=== PATIENT | female | born 1995 | race Caucasian/White ===

== ENCOUNTER 2017-09-15 15:27 | Emergency (ER) | payer MEDICAID ==
--- NOTE | 2017-09-15 16:54 | EDPHY ---
H & P Stated Complaint: trouble sleeping, SI Source: Patient Exam Limitations: No limitations - Personal History LMP (Females 10-55): Now Current Tetanus/Diphtheria Vaccine: Unsure Current Tetanus Diphtheria and Acellular Pertussis (TDAP): Unsure - Medical/Surgical History Hx Asthma: No Hx Chronic Respiratory Disease: No Hx Diabetes: No Hx Cardiac Disease: No Hx Renal Disease: No Hx Cirrhosis: No Hx Alcoholism: No Hx HIV/AIDS: No Hx Splenectomy or Spleen Trauma: No Other PMH: depression, anxiety - Social History Smoking Status: Current some day smoker Time Seen by Provider: 09/15/17 15:42 HPI/ROS: CHIEF COMPLAINT: Anxiety, suicidal thoughts HISTORY OF PRESENT ILLNESS: The patient presents the ED with complaints of anxiety and suicidal thoughts. The patient is currently being treated for depression and anxiety. She is on Zyprexa, Wellbutrin and trazodone. The patient has had some problems with warrants. She is currently in the parol system. She typically gets her health care at [facility]. She was seen at [facility] earlier today and felt as if she was dismissed. She presents to the emergency department today because she feels unsafe. She has thoughts of suicide with an intent to overdose on her psychiatric medications. The patient denies any drug or alcohol use. REVIEW OF SYSTEMS: A comprehensive 10 point review of systems is otherwise negative aside from elements mentioned in the history of present illness. (Dillon Steel) - Physical Exam Exam: General Appearance: [Alert, no distress] Eyes: [Pupils equal and round no pallor or injection] ENT, Mouth: [Mucous membranes moist] Respiratory: [There are no retractions, lungs are clear to auscultation] Cardiovascular: [Regular rate and rhythm] Gastrointestinal: [Abdomen is soft and nontender, no masses, bowel sounds normal] Neurological: [A&O, normal motor function, normal sensory exam, normal cranial nerves] Skin: [Warm and dry, no rashes] Musculoskeletal: [Neck is supple nontender] Extremities: [symmetrical, full range of motion] Psychiatric: [Patient is oriented X 3, there is no agitation] (Dillon Steel ) Constitutional: Initial Vital Signs Temperature (C) 36.6 C 09/15/17 15:51 Heart Rate 89 09/15/17 15:51 Respiratory Rate 18 09/15/17 15:51 Blood Pressure 106/86 H 09/15/17 15:51 O2 Sat (%) 98 09/15/17 15:51 O2 Delivery Mode Room Air Allergies/Adverse Reactions: carbamazepine [From Tegretol] Allergy (Verified 09/15/17 15:55) doxycycline Allergy (Verified 09/15/17 15:54) metronidazole [From Flagyl] Allergy (Verified 09/15/17 15:55) oxcarbazepine [From Trileptal] Allergy (Verified 09/15/17 15:55) Home Medications: Medication Instructions Recorded Wellbutrin Xl 09/15/17 Zyprexa 09/15/17 traZODone 09/15/17 Medical Decision Making ED Course/Re-evaluation: The patient medically cleared for psychiatric evaluation. She was evaluated by [facility]. They do not feel she meets criteria for 72 hr hold which do feel that she could benefit from placement in a crisis stabilization unit. They have contacted her regular provider at [facility] who is evaluating placement options for the patient. The patient has no evidence of an obvious toxidrome, psychosis or acute medical condition. 9:15 p.m.: Psychiatric disposition is pending. The patient will be turned over to Dr. Elizabeth at shift change pending psychiatric disposition. (Dillon Steel) 2:30 a.m.- The patient was stable throughout my shift. He was accepted at [facility] crisis stabilization unit by Dr. Hannon. I have completed the EMTALA form. ( Franny Elizabeth) Differential Diagnosis: Differential diagnosis considered includes suicidal ideation, depression, psychosis, overdose (Dillon Steel) - Data Points Laboratory Results: Laboratory Results 09/15/17 16:45 09/15/17 16:45 09/15/17 09/15/17 09/15/17 16:45 16:45 16:00 WBC 6.42 10^3/uL 10^3/uL (3.80-9.50) RBC 4.71 10^6/uL 10^6/uL (4.18-5.33) Hgb 13.5 g/dL g/dL (12.6-16.3) Hct 39.1 % % (38.0-47.0) MCV 83.0 fL fL (81.5-99.8) MCH 28.7 pg pg (27.9-34.1) MCHC 34.5 g/dL g/dL (32.4-36.7) RDW 12.3 % % (11.5-15.2) Plt Count 257 10^3/uL 10^3/uL (150-400) MPV 9.6 fL fL (8.7-11.7) Neut % (Auto) 53.0 % % (39.3-74.2) Lymph % (Auto) 39.7 % % (15.0-45.0) Hayes % (Auto) 5.9 % % (4.5-13.0) Eos % (Auto) 0.3 % L % (0.6-7.6) Baso % (Auto) 0.0 % L % (0.3-1.7) Nucleat RBC Rel Count 0.0 % % (0.0-0.2) Absolute Neuts (auto) 3.40 10^3/uL 10^3/uL (1.70-6.50) Absolute Lymphs (auto) 2.55 10^3/uL 10^3/uL (1.00-3.00) Absolute Monos (auto) 0.38 10^3/uL 10^3/uL (0.30-0.80) Absolute Eos (auto) 0.02 10^3/uL L 10^3/uL (0.03-0.40) Absolute Basos (auto) 0.00 10^3/uL L 10^3/uL (0.02-0.10) Absolute Nucleated RBC 0.00 10^3/uL 10^3/uL (0-0.01) Immature Gran % 1.1 % % (0.0-1.1) Immature Gran # 0.07 10^3/uL 10^3/uL (0.00-0.10) Sodium 145 mEq/L mEq/L (135-145) Potassium 3.8 mEq/L mEq/L (3.5-5.2) Chloride 110 mEq/L mEq/L (97-110) Carbon Dioxide 21 mEq/l L mEq/l (22-31) Anion Gap 14 mEq/L mEq/L (8-16) BUN 12 mg/dL mg/dL (7-23) Creatinine 0.7 mg/dL mg/dL (0.6-1.0) Estimated GFR > 60 Glucose 85 mg/dL mg/dL (70-100) Calcium 9.3 mg/dL mg/dL (8.5-10.4) Urine Opiates Screen NEGATIVE (NEGATIVE) Urine Barbiturates NEGATIVE (NEGATIVE) Ur Phencyclidine Scrn NEGATIVE (NEGATIVE) Ur Amphetamine Screen NEGATIVE (NEGATIVE) U Benzodiazepines Scrn NEGATIVE (NEGATIVE) Urine Cocaine Screen NEGATIVE (NEGATIVE) U Marijuana (THC) Screen NEGATIVE (NEGATIVE) Ethyl Alcohol < 10 mg/dL mg/dL (0-10) Departure - Departure Disposition: Other Psych, Not [place] Clinical Impression: Suicidal ideation, Anxiety Condition: Fair Referrals: NONE *PRIMARY CARE P,. [Primary Care Provider] - As per Instructions
[2017-09-15 17:00] LABS: PLATELET COUNT 257 10^3/uL (150-400)
[2017-09-16 03:15] VITALS: BP 128/66; PULSE 74; RESP 15; TEMP 98.2; O2SAT 94
== END 2017-09-16 03:15 ==
LOC: EDUNIT# → EDBD
DX: R45.851 Suicidal ideations (principal); F41.9 Anxiety disorder, unspecified; F17.200 Nicotine dependence, unspecified, uncomplicated
CPT/HCPCS: 80305; G0480